=== PATIENT | male | born 1955 | race Caucasian/White ===

== ENCOUNTER → 2021-04-30 | Day surgery (SDC) | payer OTHER ==
[~2021-04-30] VITALS: Ht 185.4 cm; Wt 116.6 kg
[~2021-04-30] MED LIST: ALLOPURINOL 30300 M1 PO; ASA81BEC PO; BUSPIRONE HCL15 MG PO; CARBIDOPA-LEVO1 EAC9 PO; CHLORTHALIDONE25 MG PO; CLARITIN10 M3 PO; FLONASE 0.05%50 MCG NASAL; METFORMIN HCL500 MG PO; NORVASC5 MG PO; PRAMIPEXOLE D0.25 MG PO; PROTONIX40 M2 PO; SINGULAIR 10 MG10 M1 PO; TYLENOL EXTRA500 MG PO; ZOCOR 10 MG TAB10 M1 PO
[2021-04-30 07:52] VITALS: BP 149/82
--- NOTE | 2021-04-30 08:14 | EKG ---
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
[2021-04-30 11:13] VITALS: BP 149/82
--- NOTE | 2021-05-02 12:37 | O ---
[facility] [place] [address] OPERATIVE REPORT Name: ZEV CUBA Room #: [place] [facility] [place]#: [id number] Admission: 04/30/21 Attend Phys: Nghia Amaro MD Discharge: Date of : 51 Report #: [id number] THIS REPORT FOR: cc: FAM - Family physician unknown FAM - Family physician unknown Nghia Amaro MD ~ cc: Dr. Maycol Solis DATE OF SERVICE: 04/30/2021 PREOPERATIVE DIAGNOSES: 1. Basal cell carcinoma, right external ear. 2. Mohs defect, right external ear. 3. Ear pain. POSTOPERATIVE DIAGNOSES: 1. Basal cell carcinoma, right external ear. 2. Mohs defect, right external ear. 3. Ear pain. PROCEDURE PERFORMED: 1. Adjacent tissue transfer, right external ear, 10-30 square cm. 2. Scar release of the face and ear. Code 44930. PRIMARY SURGEON: Nghia Amaro MD BIKE ASSEMBLER: None. TYPE OF ANESTHESIA: General with LMA. COMPLICATIONS: None. ESTIMATED BLOOD LOSS: Approximately 10 mL. SPECIMENS: None. IMPLANTS: None. DRAINS: None. INDICATIONS FOR PROCEDURE: The patient is a 65-year-old male with a long history of cutaneous malignancies who underwent Mohs micrographic excision on 04/29/2021, which resulted in a full-thickness external ear defect that comprised the helical rim, antihelix, and a portion of the lateral conchal bowl. He was referred to me for formal reconstruction after excision. He was consulted within the office and signed consent for the above-named procedures. [address] [place] [address] OPERATIVE REPORT Name: ZEV CUBA Room #: [place] [facility] [place].#: [id number] Admission: 04/30/21 Attend Phys: Nghia Amaro MD Discharge: Date of : 51 Report #: [id number] DESCRIPTION OF PROCEDURE: The patient was identified in the preoperative area before being transported to the operating room and placed supine on the operating table. At this point, general anesthesia was induced and LMA was inserted. At this time, a timeout was called to ensure patient identity and procedure to be performed. Once all were in agreement, the right external ear and surrounding areas were injected locally with 1%lidocaine with 1:100,000 epinephrine solution. This skin was prepped with Betadine solution, and the patient was draped in the normal sterile fashion. Starting first, wide undermining of the skin edges was performed along with sharp excision of the skin edges to freshen the wound and remove a small amount of scar contracture and granulation tissue that had begun to form. Once this was performed, the decision was made to resect a small redundant portion of cartilage that was in the anterior aspect of the conchal bowl to allow direct superior and inferior advancement of the free edges of the wound toward one another. This was done in a layered fashion using 4-0 Monocryl in the deep layer through the cartilage and then 5-0 fast absorbing gut suture placed in vertical mattress fashion to reapproximate and jarrell the skin edges. This was performed all through the anterior portion first of the ear and along the helical rim to align this up as good as possible, followed by posterior linear closure. At this point, it was noted that because there was a small amount of postauricular skin that had to be excised due to excision of the lesion, I had to perform a small O-to-T flap in the postauricular area; therefore, this was undermined in the subcutaneous plane for approximately 2-3 cm out from the wound edges. This was then released along the postauricular crease for approximately 2 cm, both inferiorly and superiorly and the skin edges were then advanced into position and sewn in layers using 4-0 Monocryl deep, followed by running locking 5-0 fast absorbing gut. At this point, a linear closure of the postauricular crease incision was performed using 5-0 fast absorbing gut in a running locking fashion. Inspection at this time did not reveal any significant remaining deformity and there was no bleeding noted. At this point, the patient was thoroughly cleaned, irrigated. Triple antibiotic ointment was applied to all incision sites, the conchal bowl and scaphoid fossa were packed with triple antibiotic ointment and cotton balls followed by Xeroform gauze dressing placed over all incision sites. Finally, a Samm ear dressing was placed and the procedure was then concluded. Please note that all instrument, sponge and needle counts were correct x2. DISPOSITION: The patient will be discharged after meeting general discharge criteria. Given that he lives approximately 4-5 hours away, he is going to stay for 24 hours' time and then depart for home tomorrow pending any unforeseen circumstances. He has been given postoperative instructions. Medications have been prescribed for pain and antibiotics, he should take these as directed. I [facility] [address] [place] [address] OPERATIVE REPORT Name: ZEV CUBA Room #: [place] [facility] [place].R.#: [id number] Admission: 04/30/21 Attend Phys: Nghia Amaro MD Discharge: Date of : 51 Report #: [id number] will see him in followup in approximately 10-12 days' time and further care will be directed on followup. They may call our office at any time. <ELECTRONICALLY SIGNED> By: Nghia Amaro MD 05/02/21 1237 [id number] 1032 Nghia Amaro MD /nt
== END | disposition home or self-care (01) ==
LOC: OR 06:30
PROVIDERS: ATTEND Otolaryngology
DX: C44.212 Basal cell carcinoma of skin of right ear and external auricular canal (principal); H61.111 Acquired deformity of pinna, right ear; H92.01 Otalgia, right ear; I10 Essential (primary) hypertension; E78.00 Pure hypercholesterolemia, unspecified; E11.9 Type 2 diabetes mellitus without complications; F32.9 Major depressive disorder, single episode, unspecified; F41.9 Anxiety disorder, unspecified; G20 Parkinson's disease; K21.9 Gastro-esophageal reflux disease without esophagitis; Z98.890 Other specified postprocedural states; Z79.899 Other long term (current) drug therapy; Z90.49 Acquired absence of other specified parts of digestive tract; Z20.822 Contact with and (suspected) exposure to COVID-19
CPT/HCPCS: 50010; 50101; 50386; 50403; 51412; 56526; 57006; 62110; 62900; 70005